=== PATIENT | male | born 1970 | race Caucasian/White ===

== ENCOUNTER → 2020-02-13 | Outpatient (CLI) | payer BC, OTHER ==
[~2020-02-13] MED LIST: OXYC10TA6 PO
== END | disposition home or self-care (01) ==
LOC: STAR 14:29
PROVIDERS: ATTEND Urology
DX: Z01.812 Encounter for preprocedural laboratory examination (principal); Z20.828 Contact with and (suspected) exposure to other viral communicable diseases; N32.0 Bladder-neck obstruction
CPT/HCPCS: 36415; 87635

== ENCOUNTER 2020-02-17 14:27 | Day surgery (SDC) | payer BC, OTHER ==
[~2020-02-17] VITALS: Ht 198.1 cm; Wt 122.1 kg
[2020-02-17] MEDS ORDERED: CHLORHEXIDINE 15 ML UDC MM ONE (15:00)
[2020-02-17] MEDS ORDERED: LACTATED RINGERS 1,000 ML IV SCH (15:00)
[2020-02-17] MEDS ORDERED: NITROFURANTOIN PO (15:04)
[2020-02-17] MEDS ORDERED: CYCLOBENZAPRINE PO (15:04)
[2020-02-17] MEDS ORDERED: ONDANSETRON 2MG/ML, 2ML ONE (16:00)
[2020-02-17] MEDS ORDERED: PROPOFOL 10 MG/ML, 20ML ONE (16:00)
[2020-02-17] MEDS ORDERED: SUGAMMADEX 200 MG/2 ML IVPush ONE (16:00)
[2020-02-17] MEDS ORDERED: DEXAMETHASONE 4 MG/ML, 1ML ONE (16:00)
[2020-02-17] MEDS ORDERED: GENTAMICIN 80 MG/2 ML ONE (16:00)
[2020-02-17] MEDS ORDERED: SUCCINYLCHOLINE 20 MG/ML, 10ML ONE (16:00)
[2020-02-17] MEDS ORDERED: AMPICILLIN 1 GM ONE (16:00)
[2020-02-17] MEDS ORDERED: ROCURONIUM 10 MG/ML,10ML ONE (16:00)
[2020-02-17] MEDS ORDERED: MIDAZOLAM 1 MG/ML, 2ML ONE (16:22)
[2020-02-17] MEDS ORDERED: OPIUM/BELLADONNA SUPP.RECT 16.2-30 MG PR ONE (16:39)
[2020-02-17] MEDS ORDERED: FENTANYL PF 100 MCG/2ML ONE ×3 (16:58→17:26)
[2020-02-17] MEDS ORDERED: FUROSEMIDE 20 MG/2 ML ONE (17:00)
[2020-02-17] MEDS ORDERED: OXYcodone 5 MG/5 ML ORAL.SOL UDC ONE (17:17)
[2020-02-17] MEDS: FENTANYL PF 100 MCG/2ML IV PRN ×4 (17:23→17:38)
[2020-02-17] MEDS ORDERED: HYDROmorphone 1 MG/ML, 1ML INJ ONE ×2 (17:26→17:57)
[2020-02-17] MEDS ORDERED: METOCLOPRAMIDE 5 MG/ML, 2ML IV PRN (17:30)
[2020-02-17] MEDS ORDERED: ONDANSETRON 2MG/ML, 2ML IVPush PRN (17:30)
[2020-02-17] MEDS ORDERED: KETOROLAC 30 MG/1 ML IV PRN ×2 (17:30→19:30)
[2020-02-17] MEDS ORDERED: OXYcodone 5 MG/5 ML ORAL.SOL UDC PO PRN (17:30)
[2020-02-17] MEDS ORDERED: MEPERIDINE/PF 25MG/0.5ML IVPush PRN (17:30)
[2020-02-17] MEDS ORDERED: LABETALOL 5MG/ML, 20ML IV PRN (17:30)
[2020-02-17] MEDS ORDERED: PROMETHAZINE 25 MG/ML, 1ML IV PRN (17:30)
[2020-02-17] MEDS ORDERED: OXYBUTYNIN CHLORIDE 5 MG TABLET PO ONE (17:30)
[2020-02-17] MEDS ORDERED: hydrALAzine 20 MG/ML, 1ML IV PRN (17:30)
[2020-02-17] MEDS ORDERED: DIAZEPAM 5 MG/ML, 2ML IV PRN ×2 (17:30)
[2020-02-17] MEDS ORDERED: ALBUTEROL SULFATE 2.5 MG/3 ML NPPB PRN (17:30)
[2020-02-17] MEDS: HYDROmorphone 1 MG/ML, 1ML INJ IV PRN ×3 (17:43→17:59)
[2020-02-17] MEDS ORDERED: DIAZEPAM 5 MG/ML, 2ML ONE (18:00)
[2020-02-17 19:13] VITALS: BP 147/93
[2020-02-17] MEDS ORDERED: HYDROcodone/APAP 5/325 TABLET PO PRN (19:30)
[2020-02-17] MEDS ORDERED: DIPHENHYDRAMINE 50 MG/ML, 1ML IV PRN (19:30)
[2020-02-17] MEDS ORDERED: ONDANSETRON 2MG/ML, 2ML IV PRN (19:30)
[2020-02-17] MEDS ORDERED: HYDROmorphone 1 MG/ML, 1ML INJ IV PRN (19:30)
[2020-02-17] MEDS ORDERED: OXYB10TA26 PO (20:47)
[2020-02-20] MEDS ORDERED: NITR100C6 PO (17:48)
[2020-02-20] MEDS ORDERED: CYCL5TAB PO (17:48)
[2020-02-20] MEDS ORDERED: TAMS-11 PO (17:48)
[2020-02-20] MEDS ORDERED: IBUP-1223 PO (17:48)
[2020-02-23] MEDS ORDERED: CEPH-368 PO (10:14)
[2020-02-23] MEDS ORDERED: CARV3.1212 PO (10:14)
[2020-02-23] MEDS ORDERED: DOXY100C2 PO (10:20)
== END 2020-02-17 21:15 | disposition home or self-care (01) ==
LOC: OUT 14:27 → 4NE 18:42 → OUT 21:15
PROVIDERS: ATTEND Urology
DX: N40.1 Benign prostatic hyperplasia with lower urinary tract symptoms (principal); N32.0 Bladder-neck obstruction; N30.80 Other cystitis without hematuria; Z88.0 Allergy status to penicillin; Z79.899 Other long term (current) drug therapy; Z79.2 Long term (current) use of antibiotics; Z72.89 Other problems related to lifestyle
CPT/HCPCS: 52450; J0290; J0330; J1100; J1170; J1580; J1940; J2250; J2405; J2704; J3010; J3360; J7120; G0378